=== PATIENT | male | born 1965 | race African-American/Black ===

== ENCOUNTER → 2019-10-03 | Outpatient (CLI) | payer BC ==
[2019-10-03 13:17] LABS: HCT 42.5 % (39.0-53.0); HGB 13.9 gm/dL (13.0-17.5); MCH 31.4 pg (25.0-35.0); MCHC 32.8 g/dL (31.0-37.0); MCV 95.8 fL (80.0-100.0); Mean Platelet Volume 7.6; Platelet Count 234 k/uL (150-450); RBC 4.44 m/uL (4.30-5.90); RDW 13.4 % (11.5-15.5); WBC 8.8 k/uL (3.8-10.6)
[2019-10-03 19:41] LABS: T4, Free (Free Thyroxine) 1.2 ng/dL (0.80-1.80)
[2019-10-03 20:05] LABS: African American GFR (CKD) 118.2 (60.0-200.0); Albumin 4.6 g/dL (3.80-4.90); Albumin/Globulin Ratio 1.84 (1.60-3.17); Anion Gap 9.2 mmol/L (4.00-12.00); BUN/Creat Ratio 6.25 Ratio (12.00-20.00); Calcium 9.6 mg/dL (8.7-10.3); Carbon Dioxide 25.8 mmol/L (21.6-31.8); Globulin 2.5 g/dL (1.6-3.3); Potassium 4.1 mmol/L (3.5-5.5); Total Bilirubin 0.5 mg/dL (0.2-1.2); Total Protein 7.1 g/dL (6.2-8.2)
== END | disposition home or self-care (01) ==
LOC: LABWHC1 11:16
PROVIDERS: ATTEND Internal Medicine
DX: R53.83 Other fatigue (principal)
CPT/HCPCS: 36415; 80053; 84439; 84443; 85027; 93005

== ENCOUNTER 2021-03-15 12:45 | Emergency (ER) | payer BC, OTHER ==
[2021-03-15 13:30] VITALS: BP 104/76; PULSE 94; RESP 18; TEMP 98.4
--- NOTE | 2021-03-15 14:24 | ED ---
General Adult HPI - General Chief complaint: Upper Respiratory Infection Stated complaint: Covid symptoms Time Seen by Provider: 03/15/21 14:03 Source: patient, RN notes reviewed Mode of arrival: ambulatory Limitations: no limitations - History of Present Illness Initial comments: 55-year-old male presents to the emergency room for a chief complaint of not feeling well. Patient states for the past couple days he has had congestion and cough. He has a headache. He has had fevers on and off. He has felt tired and weak. He is not vaccinated for Covid. 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 - Related Data Allergies Allergy/AdvReac Type Severity Reaction Status Date / Time No Known Allergies Allergy Verified 03/15/21 13:30 Review of Systems ROS Statement: Those systems with pertinent positive or pertinent negative responses have been documented in the HPI. ROS Other: All systems not noted in ROS Statement are negative. Past Medical History Past Medical History: No Reported History History of Any Multi-Drug Resistant Organisms: None Reported Past Surgical History: No Surgical Hx Reported Past Psychological History: No Psychological Hx Reported Smoking Status: Current every day smoker Past Alcohol Use History: Daily Past Drug Use History: Marijuana General Exam Limitations: no limitations General appearance: alert, in no apparent distress Head exam: Present: atraumatic Eye exam: Present: normal appearance, PERRL, EOMI. Absent: scleral icterus, conjunctival injection ENT exam: Present: normal exam, mucous membranes moist Neck exam: Present: normal inspection, full ROM. Absent: tenderness Respiratory exam: Present: normal lung sounds bilaterally. Absent: respiratory distress, wheezes Cardiovascular Exam: Present: regular rate, normal rhythm, normal heart sounds GI/Abdominal exam: Present: soft, normal bowel sounds. Absent: distended, tenderness Neurological exam: Present: alert Course Vital Signs 03/15/21 13:27 Temperature 98.4 F Pulse Rate 94 Respiratory 18 Rate Blood Pressure 104/76 O2 Sat by Pulse 100 Oximetry Medical Decision Making - Medical Decision Making vitals are stable. Patient is 100% on room air. COVID-19 is positive. Patient can be discharged home to follow up with primary care and will return here for any worsening symptoms. pt does not currently qualify for antibody infusion as prioritization guidelines for [place] and are currently being enforced. Patient denies any PMH w hatsoever. - Lab Data Lab Results 03/15/21 Range/Units 13:32 Coronavirus (PCR) Detected A (Not Detectd) Disposition Clinical Impression: COVID-19 Disposition: HOME SELF-CARE Condition: Good Instructions (If sedation given, give patient instructions): Coronavirus Disease 2019 (COVID-19) Additional Instructions: take Motrin and Tylenol for fever or pain. Take [id number] cold and flu medication. Drink plenty of fluids. Take vitamin C, D, and zinc. Follow-up with your doctor in one to 2 days. Return to the emergency room for any worsening symptoms. Is patient prescribed a controlled substance at d/c from ED?: No Referrals: Dakota Evans MD [Primary Care Provider] - 1-2 days Time of Disposition: 14:23
== END 2021-03-15 14:37 | disposition home or self-care (01) ==
LOC: EC 12:45
DX: U07.1 COVID-19 (principal); F17.200 Nicotine dependence, unspecified, uncomplicated; F12.90 Cannabis use, unspecified, uncomplicated
CPT/HCPCS: 87635; 99284

== ENCOUNTER 2022-02-22 17:47 | Emergency (ER) | payer OTHER ==
[2022-02-22 17:54] VITALS: RESP 16; TEMP 98.5
[2022-02-22 18:44] LABS: Basophils # (A) 0.1 k/uL (0-0.2); Basophils % (A) 1 %; Eosinophils # (A) 0.1 k/uL (0-0.7); Eosinophils % (A) 2 %; HCT 39.2 % (39.0-53.0); HGB 13.6 gm/dL (13.0-17.5); Lymphocytes % (A) 27 %; MCH 33.2 pg (25.0-35.0); MCHC 34.8 g/dL (31.0-37.0); MCV 95.5 fL (80.0-100.0); Mean Platelet Volume 8.1; Monocytes # (A) 0.3 k/uL (0-1.0); Monocytes % (A) 4 %; Neutrophils # (A) 4.8 k/uL (1.3-7.7); Neutrophils % (A) 65 %; Platelet Count 194 k/uL (150-450); RDW 12.9 % (11.5-15.5); WBC 7.3 k/uL (3.8-10.6)
[2022-02-22] MEDS ORDERED: SODIUM CHLORIDE 0.9% 2,000 ML IV STA (18:53)
[2022-02-22 19:05] LABS: ALT 20 U/L (4-49); AST 32 U/L (17-59); African American GFR (CKD) 70 (>60 ml/min/1.73 sqM); Albumin 3.7 g/dL (3.5-5.0); Alcohol <10 mg/dL; Alkaline Phosphatase 49 U/L (38-126); Anion Gap 5 mmol/L; Blood Urea Nitrogen 16 mg/dL (9-20); Calcium 8.6 mg/dL (8.4-10.2); Carbon Dioxide 27 mmol/L (22-30); Chloride 106 mmol/L (98-107); Glucose 118 mg/dL (74-99); Non-African American GFR(CKD) 60 (>60 ml/min/1.73 sqM); Potassium 5.2 mmol/L (3.5-5.1); Sodium 138 mmol/L (137-145); Total Bilirubin 0.3 mg/dL (0.2-1.3); Total Protein 6.2 g/dL (6.3-8.2)
--- NOTE | 2022-02-22 19:19 | ED ---
General Adult HPI - General Chief complaint: Dizziness Stated complaint: dizziness, syncope Time Seen by Provider: 02/22/22 17:48 Source: patient, family, RN notes reviewed, old records reviewed Mode of arrival: EMS Limitations: no limitations - History of Present Illness Initial comments: This is a 56-year-old male with no significant past medical history. Patient comes in today because he had a syncopal episode. Patient's girlfriend tells me that this is happened multiple times in the past. Patient states he had no chest pain no difficulty breathing or shortness of breath no palpitations. Patient states he just got done bring something up from downstairs it wasn't that heavy but it was some exertion. Patient states started feeling lightheaded and according to his girlfriend he had passed out and shook for a few seconds and then eventually came to. Patient became alert patient was not confused at all he knew where he was and who was girlfriend was immediately. According to EMS when they arrived his pressure was low once he got up and was walking around and he again felt lightheaded. Patient states he did give plasma yesterday and he hasn't been eating or drinking much today but he did have one can earlier. Denies any fever chills or cough. Patient denies any headache patient denies numbness or weakness. - Related Data Home Medications Medication Instructions Recorded Confirmed No Known Home Medications 02/22/22 02/22/22 Allergies Allergy/AdvReac Type Severity Reaction Status Date / Time No Known Allergies Allergy Verified 02/22/22 19:33 Review of Systems ROS Statement: Those systems with pertinent positive or pertinent negative responses have been documented in the HPI. ROS Other: All systems not noted in ROS Statement are negative. Past Medical History Past Medical History: No Reported History History of Any Multi-Drug Resistant Organisms: None Reported Past Surgical History: No Surgical Hx Reported Past Psychological History: No Psychological Hx Reported Smoking Status: Current every day smoker Past Alcohol Use History: Daily Past Drug Use History: Marijuana General Exam - General Exam Comments Initial Comments: GENERAL: Patient is well-developed and well-nourished. Patient is nontoxic and well-hydrated and is in no acute distress. ENT: Neck is soft and supple. No significant lymphadenopathy is noted. Oropharynx is clear. Moist mucous membranes. Neck has full range of motion without eliciting any pain. There is no thyroid enlargement and no masses were felt. EYES: The sclera were anicteric and conjunctiva were pink and moist. Extraocular movements were intact and pupils were equal round and reactive to light. Eyelids were unremarkable. PULMONARY: Unlabored respirations. Good breath sounds bilaterally. No audible rales rhonchi or wheezing was noted. CARDIOVASCULAR: There is a regular rate and rhythm without any murmurs gallops or rubs. ABDOMEN: Soft and nontender with normal bowel sounds. No palpable organomegaly was noted. There is no palpable pulsatile mass. SKIN: Skin is clear with no lesions or rashes and otherwise unremarkable. NEUROLOGIC: Patient is alert and oriented x3. Cranial nerves II through XII are grossly intact. Motor and sensory are also intact. Normal speech, volume and content. Symmetrical smile. MUSCULOSKELETAL: Normal extremities with adequate strength and full range of motion. No lower extremity swelling or edema. No calf tenderness. LYMPHATICS: No significant lymphadenopathy is noted PSYCHIATRIC: Normal psychiatric evaluation. Limitations: no limitations Course Vital Signs 02/22/22 02/22/22 17:51 18:17 Temperature 98.5 F Pulse Rate 99 84 Respiratory 16 16 Rate Blood Pressure 118/72 93/60 O2 Sat by Pulse 95 95 Oximetry Medical Decision Making - Medical Decision Making EKG was interpreted by me. EKG shows a sinus rhythm at 76 bpm MO interval or frequency dresses 72 QT interval 05[birth year]/1969 QTC is 367 EKG shows some early repolarization. Patient received a liter and a half normal saline. Patient was able to Ambulate without symptoms. Patient ate and drank fluids while in the emergency department. I went back in and reevaluated the patient he stated he felt at his baseline the patient we discharged home. - Lab Data Result diagrams: 02/22/22 18:23 02/22/22 18:23 Lab Results 02/22/22 02/22/22 02/22/22 Range/Units 18:23 18:23 18:23 WBC 7.3 (3.8-10.6) k/uL RBC 4.10 L (4.30-5.90) m/uL Hgb 13.6 (13.0-17.5) gm/dL Hct 39.2 (39.0-53.0) % MCV 95.5 (80.0-100.0) fL MCH 33.2 (25.0-35.0) pg MCHC 34.8 (31.0-37.0) g/dL RDW 12.9 (11.5-15.5) % Plt Count 194 (150-450) k/uL MPV 8.1 Neutrophils % 65 % Lymphocytes % 27 % Monocytes % 4 % Eosinophils % 2 % Basophils % 1 % Neutrophils # 4.8 (1.3-7.7) k/uL Lymphocytes # 2.0 (1.0-4.8) k/uL Monocytes # 0.3 (0-1.0) k/uL Eosinophils # 0.1 (0-0.7) k/uL Basophils # 0.1 (0-0.2) k/uL Sodium 138 (137-145) mmol/L Potassium 5.2 H (3.5-5.1) mmol/L Chloride 106 (98-107) mmol/L Carbon Dioxide 27 (22-30) mmol/L Anion Gap 5 mmol/L BUN 16 (9-20) mg/dL Creatinine 1.32 H (0.66-1.25) mg/dL Est GFR (CKD-EPI)AfAm 70 (>60 ml/min/1.73 sqM) Est GFR (CKD-EPI)NonAf 60 (>60 ml/min/1.73 sqM) Glucose 118 H (74-99) mg/dL Calcium 8.6 (8.4-10.2) mg/dL Magnesium 2.0 (1.6-2.3) mg/dL Total Bilirubin 0.3 (0.2-1.3) mg/dL AST 32 (17-59) U/L ALT 20 (4-49) U/L Alkaline Phosphatase 49 (38-126) U/L Troponin I <0.012 (0.000-0.034) ng/mL Total Protein 6.2 L (6.3-8.2) g/dL Albumin 3.7 (3.5-5.0) g/dL Serum Alcohol <10 mg/dL Disposition Clinical Impression: Orthostatic syncope Disposition: HOME SELF-CARE Condition: Good Instructions (If sedation given, give patient instructions): Hypotension (ED) Additional Instructions: Patient should not donate plasma. Patient should make sure he eats and hydrates more. Is patient prescribed a controlled substance at d/c from ED?: No Referrals: Dakota Evans MD [Primary Care Provider] - 1-2 days Time of Disposition: 20:35
--- NOTE | 2022-02-22 20:16 | XR ---
EXAMINATION TYPE: XR chest 2V DATE OF EXAM: 02/22/2022 7:31 PM COMPARISON: None TECHNIQUE: XR chest 2V Frontal and lateral views of the chest. CLINICAL INDICATION:Male, 56 years old with history of Difficulty breathing ; FINDINGS: Lungs/Pleura: There is no evidence of pleural effusion, focal consolidation, or pneumothorax. Pulmonary vascularity: Unremarkable. Heart/mediastinum: Cardiomediastinal silhouette is unremarkable. Musculoskeletal: No acute osseous pathology. IMPRESSION: No acute cardiopulmonary disease/process.
[2022-02-22 22:34] VITALS: BP 98/62; PULSE 89
== END 2022-02-22 22:36 | disposition home or self-care (01) ==
LOC: EC 17:47
DX: I95.1 Orthostatic hypotension (principal); F17.200 Nicotine dependence, unspecified, uncomplicated; F12.90 Cannabis use, unspecified, uncomplicated
CPT/HCPCS: 36415; 93005; 80053; 83735; 84484; 85025; 71046; 99284; 96360; 96361; G0480; 80320